=== PATIENT | female | born 1940 | race Caucasian/White ===

== ENCOUNTER 2020-01-30 14:22 | Emergency (ER) | payer MEDICARE ==
[~2020-01-30] VITALS: Ht 147.3 cm; Wt 46.0 kg
[~2020-01-30 14:22] MED LIST: ASPI-1073 PO; CLOP75TA4 PO; OXYB5TAB17 PO; RAMI10CA68 PO; ROSU40TA PO; VALS320T2 PO
[2020-01-30 14:33] VITALS: BP 159/105
== END 2020-01-30 21:57 | disposition left against medical advice (07) ==
LOC: ER 14:30
DX: Z53.21 Procedure and treatment not carried out due to patient leaving prior to being seen by health care provider (principal)

== ENCOUNTER → 2020-12-04 | Outpatient (CLI) | payer MEDICARE ==
[~2020-12-04] MED LIST changes: +CLOP-31 PO; -CLOP75TA4 PO
== END | disposition home or self-care (01) ==
LOC: LAB 12:17
PROVIDERS: ATTEND Internal Medicine
DX: Z01.812 Encounter for preprocedural laboratory examination (principal); Z20.822 Contact with and (suspected) exposure to COVID-19
CPT/HCPCS: 87426

== ENCOUNTER → 2020-12-05 | Day surgery (SDC) | payer MEDICARE ==
[~2020-12-05] MED LIST changes: +ACETAMINOPHEN 325MG TABLET PO PRN; +ATROPINE SULFATE 1MG/10ML SYR IV PRN; +FENTANYL CITRATE/PF 50MCG/ML 2ML VIAL ONE; +FENTANYL CITRATE/PF 50MCG/ML 5ML VIAL ONE; +HEPARIN SODIUM 1,000 UNIT/1ML VIAL IV ONE; +IODIXANOL 320MG/ML 100 ML BOTTLE IV ONE; +LIDOCAINE HCL 1% 20ML VIAL (Pyxis) INJ ONE; +MIDAZOLAM HCL 2 MG/2 ML VIAL ONE; +MIDAZOLAM HCL 5 MG/5 ML VIAL ONE; +NICARDIPINE 100MCG/ML 10ML VIAL (CATH LAB) IV ONE; +NITROGLYCERIN 50MCG/ML 10ML VIAL (CATH LAB) IV ONE; +SODIUM CHLORIDE 0.45% 250 ML IV SCH; +VERAPAMIL HCL 2.5 MG/1 ML 2ML VIAL IV ONE
[2020-12-05 08:39] LABS: BASOPHILS % 0.6 % (0.0-2.0); EOSINOPHILS % 2.2 % (0.0-5.0); HEMATOCRIT. 39.9 % (36.0-48.0); HEMOGLOBIN. 13.6 g/dL (12.0-16.0); MEAN CORPUSCULAR HEMOGLOBIN 30.5 pg (28.0-32.0); MEAN CORPUSCULAR VOLUME 89.8 fL (81.0-99.0); MEAN PLATELET VOLUME 7.4 fl (7.4-10.4); MONOCYTES % 8.2 % (2.0-8.0); PLATELET 268 x1000/uL (130-400); RED BLOOD CELL COUNT 4.45 mill/uL (4.2-5.4); RED CELL DISTRIBUTION WIDTH 13.5 % (11.6-14.6)
[2020-12-05 08:45] LABS: INR 0.9; PROTHROMBIN TIME 10.2 sec (9.6-11.0)
== END | disposition home or self-care (01) ==
LOC: CCL 07:07
PROVIDERS: ATTEND Internal Medicine
DX: R94.39 Abnormal result of other cardiovascular function study (principal); I20.0 Unstable angina; I73.9 Peripheral vascular disease, unspecified; J44.9 Chronic obstructive pulmonary disease, unspecified; I12.9 Hypertensive chronic kidney disease with stage 1 through stage 4 chronic kidney disease, or unspecified chronic kidney disease; N18.9 Chronic kidney disease, unspecified; Z86.73 Personal history of transient ischemic attack (TIA), and cerebral infarction without residual deficits; Z87.891 Personal history of nicotine dependence; Z79.899 Other long term (current) drug therapy; Z79.82 Long term (current) use of aspirin; Z98.890 Other specified postprocedural states; Z82.49 Family history of ischemic heart disease and other diseases of the circulatory system
CPT/HCPCS: 36415; 80048; 85025; 85347; 85610; 93005; 93458; 93571; 99152; C1769; C1887; C1893; J1644; J2250; J3010; J3490; Q9967; G0500